=== PATIENT | male | born 1970 | race Caucasian/White ===

== ENCOUNTER 2019-02-12 13:26 | Emergency (ER) | payer OTHER ==
[~2019-02-12] VITALS: Ht 172.7 cm; Wt 94.8 kg
[~2019-02-12 13:26] MED LIST: EXFORGE HCT 5-1 EAC1
[2019-02-12] MEDS ORDERED: AVAPRO150 MG PO (13:50)
== END 2019-02-12 16:16 | disposition home or self-care (01) ==
LOC: ER 13:26
DX: R07.89 Other chest pain (principal)

== ENCOUNTER 2019-05-11 19:45 | Emergency (ER) | payer OTHER ==
[~2019-05-11] VITALS: Ht 172.7 cm; Wt 95.3 kg
[~2019-05-11 19:45] MED LIST changes: +AVAPRO150 MG PO
== END 2019-05-12 03:27 | disposition home or self-care (01) ==
LOC: ER 19:45
DX: R51 Headache (principal)